=== PATIENT | female | born 1965 | race Caucasian/White ===

== ENCOUNTER 2019-02-14 23:06 | Emergency (ER) | payer SELFPAY ==
[~2019-02-14] VITALS: Ht 167.6 cm; Wt 69.0 kg
[2019-02-14] MEDS: IV NORMAL SALINE 1,000ML 1,000 ML IV ONE (23:15)
--- NOTE | 2019-02-14 23:25 | EKG ---
[address] [address] Test Date: 2019-02-14 Test Time: 23:17:10 Pat Name: DARIANA KAPADIA Department: Room: Gender: F Barrel Planer: : 1965 Requested By: RAMSES WELLINGTON Order Number: [id number] Reading MD: Measurements Intervals Hardin Rate: 92 P: 49 SC: 140 QRS: -32 QRSD: 94 T: 78 QT: 384 QTc: 480 Interpretive Statements SINUS RHYTHM ABNORMAL LEFT AXIS DEVIATION LOW LIMB LEAD VOLTAGE LEFT ANTERIOR FASCICULAR BLOCK QRS(T) CONTOUR ABNORMALITY CONSIDER ANTEROSEPTAL MYOCARDIAL DAMAGE PROLONGED QT ABNORMAL ECG RI6.01 No previous ECG available for comparison
--- NOTE | 2019-02-14 23:36 | PHYS DOC ---
Past History Past Medical History: Anxiety, Asthma, Cancer, Depression, Diabetes, GERD, High Cholesterol, Migraines, Seizure Additional Past Medical Histor: Panic attacks, dissociative identity disorder Smoking: Cigarettes Alcohol Use: Rarely Drug Use: None Adult General Chief Complaint Chief Complaint: SEIZURE HPI HPI 53-year-old female presents via EMS with report of seizure-like activity lasting 1 minute 2. Patient apparently had a similar episode 4 days ago and was seen at [facility]. Patient apparently had been admitted at that time but was told she did not have a true seizure. Patient was also being evaluated for possible obstipation. Patient subsequently elected to leave AGAINST MEDICAL ADVICE as she did not think she needed to stay in the hospital. Family states patient did lose consciousness and was shaking. Denies loss of bowel or bladder. Denies tongue pain or bleeding from mouth. EMS reports patient was confused u rio their arrival and appeared to be postictal. Review of Systems Review of Systems Constitutional: Denies fever or chills Eyes: Denies redness or eye pain HENT: Denies nasal congestion or sore throat Respiratory: Denies cough or shortness of breath Cardiovascular: Denies chest pain or palpitations GI: Denies abdominal pain, nausea, or vomiting : Denies dysuria or hematuria Musculoskeletal: Denies back pain or joint pain Integument: Denies rash or skin lesions Neurologic: Reports headache and seizure-like activity Complete systems were reviewed and found to be within normal limits, except as documented in this note. Current Medications Current Medications Current Medications Medications (Trade) Dose Ordered Sig/Krzysztof Start Time Stop Time Status Last Admin Dose Admin Sodium Chloride 1,000 ml @ 1,000 mls/hr 1X ONCE 02/14/19 23:15 02/15/19 00:14 UNV Physical Exam Physical Exam Constitutional: Well developed, well nourished, no acute distress, non-toxic appearance HENT: Normocephalic, atraumatic, oropharynx moist Eyes: EOMI, PERRL, conjunctiva normal, no discharge Neck: Normal range of motion, no midline tenderness, supple Cardiovascular: Heart rate normal, regular rhythm Lungs & Thorax: Bilateral breath sounds clear to auscultation, no wheezing Abdomen: Soft, no tenderness, no distention/rebound tenderness/ Skin: Warm, dry, no erythema, no rash Extremities: No tenderness, ROM intact, no edema Neurologic: Alert and oriented X 3, normal motor function, normal sensory function, no focal deficits noted Psychologic: Affect anxious, judgement normal EKG EKG @2317 NSR at 92bpm, NO ST elevation, QRS 94ms, QT/QTc 384/480ms Radiology/Procedures Radiology/Procedures PROCEDURE: CT HEAD AND CERVICAL SPINE WO CT HEAD AND CERVICAL SPINE WO Date: 02/14/2019 11:13 PM Clinical Indication: Altered mental status, seizure like activity, neck pain, headache Comparison: None. Technique: 5 mm axial tomographic images were obtained of the head without contrast. These were viewed on brain and bone windows. CT imaging of the cervical spine was performed without contrast. Coronal and sagittal reformatted images were performed. One or more of the following dose reduction techniques were utilized: Automated exposure control (AEC), Adjustment of mA and/or kV according to patient size, Use of iterative reconstruction technique such as ASiR, CT scan done according to ALARA and image gently/image wisely HEAD FINDINGS: The brain parenchyma is normal in attenuation. No intra- or extra-axial mass or fluid collection. No acute hemorrhage. The ventricles are normal in size, shape, and morphology. The murdock-white matter junction is normal. The basilar cisterns are patent. The visualized paranasal sinuses are normal. The visualized portions of the orbits and globes are normal. The mastoid air cells are clear. No aggressive osseous lesion or fracture. CERVICAL SPINE FINDINGS: Straightening of the cervical lordosis. No acute fracture. No aggressive lytic or blastic osseous lesion. Mild multilevel degenerative disc height loss. No high-grade spinal canal stenosis or neural foraminal narrowing. Left thyroidectomy. No cervical lymphadenopathy. The visualized aerodigestive tract is unremarkable. Centrilobular emphysema. IMPRESSION: 1. No acute intracranial process. 2. No acute osseous abnormality of the cervical spine. Electronically signed by: Kody Bruce MD (02/15/2019 12:05 AM) [facility] Course & Med Decision Making Course & Med Decision Making Pertinent Labs and Imaging studies reviewed. (See chart for details) Patient presents via EMS with report of witnessed seizure-like activity. Patient was noted by EMS to be post ictal. Patient did appear slightly confused upon arrival with interval improvement during ED stay. IV fluid hydration provided. EKG stable. Labs obtained and posted to chart. WBC, lactic acid, and CPK all within normal limits. Hypokalemia addressed. CT head/cervical spine without acute process. It is unclear what ultimately happened this evening however patient appears very stable at this time. Patient and family advised patient would need to follow closely with her PCP and/or neurologist for further evaluation. Neurology referral provided. Discussed findings and plan with patient and family, who acknowledge understanding and agreement. Dragon Disclaimer Dragon Disclaimer This electronic medical record was generated, in whole or in part, using a voice recognition dictation system. Departure Departure: Impression: Primary Impression: Witnessed seizure-like activity Additional Impressions: Hypokalemia Hx of constipation Disposition: HOME, SELF-CARE Condition: STABLE Referrals: PCP,LONNIE (PCP) JOSEY HALL MD Patient Instructions: Constipation, Adult, Lhvz-[id number]-Dkhn, Hypokalemia-Brief, Potassium Content of Foods, Seizure, Adult, Ogdr-ce-Vupy, Syncope, [id number]-rb-[id number] Additional Instructions: It is unclear what ultimately happened this evening. It is important for you to follow closely with your family physician and/or a specialist (ie Neurologist). A referral has been given for you to call and make an appointment for further evaluation and treatment. Your labs, EKG, CT imaging, and monitoring have come back inconclusive and therefore more specialize outpatient testing is warranted. Scripts Polyethylene Glycol 3350 (MIRALAX) 17 Gm Powd.pack 1 PACKET PO DAILY PRN for CONSTIPATION, #20 PACKET 0 Refills dissolve in water Prov: RAMSES WELLINGTON DO 02/15/19 Sennosides/Docusate Sodium (Colace 2-in-1 Tablet) 1 Each Tablet 1 TAB PO QHS for Constipation for 30 Days, #30 TAB 0 Refills Prov: RAMSES WELLINGTON DO 02/15/19 Problem Qualifiers RAMSES WELLINGTON DO Feb 14, 2019 23:36
[2019-02-14 23:47] LABS: BASO # 0.1 x10^3/uL (0.0-0.2); BASO % 1 % (0-3); EOS # 0.1 x10^3/uL (0.0-0.7); EOS % 1 % (0-3); HEMATOCRIT 44.6 % (36.0-47.0); HEMOGLOBIN 15.3 g/dL (12.0-15.5); LYMPH # 2.9 x10^3/uL (1.0-4.8); LYMPH % 27 % (24-48); MEAN CORPUSCULAR HEMOGLOBIN 30 pg (25-35); MEAN CORPUSCULAR HGB CONC 34 g/dL (31-37); MEAN CORPUSCULAR VOLUME 87 fL (79-100); MONO # 0.5 x10^3/uL (0.0-1.1); MONO % 5 % (0-9); NEUT % 66 % (31-73); PLATELET COUNT 190 x10^3/uL (140-400); RED BLOOD COUNT 5.12 x10^6/uL (3.50-5.40); WHITE BLOOD COUNT 10.6 x10^3/uL (4.0-11.0)
[2019-02-14 23:53] LABS: BACTERIA,URINE 0 /HPF (0-FEW); BILIRUBIN,URINE NEG (NEG); CLARITY,URINE CLEAR; COLOR,URINE YELLOW; GLUCOSE,URINE 500 mg/dL (NEG); NITRITE,URINE NEG (NEG); RBC,URINE 0 /HPF (0-2); SQUAMOUS EPITHELIAL CELL,UR FEW /LPF; UROBILINOGEN,URINE 0.2 mg/dL (0.2 mg/dL); WBC,URINE OCC /HPF (0-4)
[2019-02-14 23:57] LABS: CALCIUM 8.7 mg/dL (8.5-10.1); CREATININE 0.7 mg/dL (0.6-1.0); GFR 87.5; POTASSIUM 3.3 mmol/L (3.5-5.1)
[2019-02-14 23:58] LABS: BARBITURATES NEG (NEG); BENZODIAZEPINES NEG (NEG); CANNABINOIDS NEG (NEG); COCAINE NEG (NEG); METHADONE NEG (NEG); OPIATES NEG (NEG); PHENCYCLIDINE NEG (NEG)
[2019-02-15] LABS: AMPHETAMINE/METHAMPHETAMINE NEG (NEG)
--- NOTE | 2019-02-15 00:08 | RAD ---
CT HEAD AND CERVICAL SPINE WO Date: 02/14/2019 11:13 PM Clinical Indication: Altered mental status, seizure like activity, neck pain, headache Comparison: None. Technique: 5 mm axial tomographic images were obtained of the head without contrast. These were viewed on brain and bone windows. CT imaging of the cervical spine was performed without contrast. Coronal and sagittal reformatted images were performed. One or more of the following dose reduction techniques were utilized: Automated exposure control (AEC), Adjustment of mA and/or kV according to patient size, Use of iterative reconstruction technique such as ASiR, CT scan done according to ALARA and image gently/image wisely HEAD FINDINGS: The brain parenchyma is normal in attenuation. No intra- or extra-axial mass or fluid collection. No acute hemorrhage. The ventricles are normal in size, shape, and morphology. The murdock-white matter junction is normal. The basilar cisterns are patent. The visualized paranasal sinuses are normal. The visualized portions of the orbits and globes are normal. The mastoid air cells are clear. No aggressive osseous lesion or fracture. CERVICAL SPINE FINDINGS: Straightening of the cervical lordosis. No acute fracture. No aggressive lytic or blastic osseous lesion. Mild multilevel degenerative disc height loss. No high-grade spinal canal stenosis or neural foraminal narrowing. Left thyroidectomy. No cervical lymphadenopathy. The visualized aerodigestive tract is unremarkable. Centrilobular emphysema. IMPRESSION: 1. No acute intracranial process. 2. No acute osseous abnormality of the cervical spine. Electronically signed by: Kody Bruce MD (02/15/2019 12:05 AM) [facility]
[2019-02-15 00:10] LABS: ALBUMIN 3.3 g/dL (3.4-5.0); MAGNESIUM 1.8 mg/dL (1.8-2.4); TOTAL BILIRUBIN 0.4 mg/dL (0.2-1.0); TOTAL PROTEIN 6.7 g/dL (6.4-8.2)
[2019-02-15 00:36] VITALS: BP 132/58
[2019-02-15] MEDS: POTASSIUM CHLORIDE 20 MEQ TABLET.ER. PO ONE (00:41)
[2019-02-15] MEDS ORDERED: SENN-121 PO (00:43)
[2019-02-15] MEDS ORDERED: POLY17PO5 PO (00:43)
== END 2019-02-15 00:44 | disposition home or self-care (01) ==
LOC: ER 23:06
DX: R56.9 Unspecified convulsions (principal); E87.6 Hypokalemia; F41.9 Anxiety disorder, unspecified; J45.909 Unspecified asthma, uncomplicated; F32.9 Major depressive disorder, single episode, unspecified; E11.9 Type 2 diabetes mellitus without complications; K21.9 Gastro-esophageal reflux disease without esophagitis; E78.00 Pure hypercholesterolemia, unspecified; G43.909 Migraine, unspecified, not intractable, without status migrainosus; F17.210 Nicotine dependence, cigarettes, uncomplicated
CPT/HCPCS: 36415; 70450; 72125; 80053; 80307; 81001; 82140; 82550; 83605; 83735; 84484; 85025; 93005; 99285; G0480

== ENCOUNTER 2019-05-02 18:38 | Emergency (ER) | payer SELFPAY ==
[~2019-05-02] VITALS: Ht 167.6 cm; Wt 69.0 kg
[~2019-05-02 18:38] MED LIST: POLY17PO5 PO; SENN-121 PO
--- NOTE | 2019-05-02 18:41 | PHYS DOC ---
Past History Past Medical History: Anxiety, Asthma, Cancer, Depression, Diabetes, GERD, High Cholesterol, Migraines, Seizure, UTI Additional Past Medical Histor: Panic attacks, dissociative identity disorder Past Surgical History: Cancer Surgery, Hysterectomy Smoking: Cigarettes Alcohol Use: Rarely Drug Use: None Adult General Chief Complaint Chief Complaint: VAGINAL PROBLEM... " Got this horrible gross smell coming from my vagina... I started a new sexual relationship in November... It has been unprotected..."..." That discharge stinks really bad..." HPI HPI Patient is a 53 year old female who presents with above hx and complaints motor is vaginal discharge . Recent new sexual partner. Patient denies previous history of STDs. Patient does have a history of anxiety , dis -associative diso rder, asthma, diabetes, GERD, arthritis, and urinary tract infections. Patient denies that she's had approximately 7 lifetime sex partners. Patient states the discharge markedly increased this week .s Pt. follows with Dr. Jefferson. Review of Systems Review of Systems Constitutional: Denies fever or chills [] Eyes: Denies change in visual acuity, redness, or eye pain [] HENT: Denies nasal congestion or sore throat [] Respiratory: Denies cough or shortness of breath [] Cardiovascular: No additional information not addressed in HPI [] GI: Denies abdominal pain, nausea, vomiting, bloody stools or diarrhea [] : Complaints of a vaginal discharge Musculoskeletal: Denies back pain or joint pain [] Integument: Denies rash or skin lesions [] Neurologic: Denies headache, focal weakness or sensory changes [] Endocrine: Denies polyuria or polydipsia [] All other systems were reviewed and found to be within normal limits, except as documented in this note. Family History Family History Noncontributory presentation Current Medications Current Medications See nursing for home meds Allergies Allergies Allergies Coded Allergies Type Severity Reaction Last Updated Verified Cephalosporins Allergy Intermediate 02/15/19 Yes metformin Allergy Intermediate 02/15/19 Yes Physical Exam Physical Exam Constitutional: , no acute distress, non-toxic appearance. [] HENT: Normocephalic, atraumatic, bilateral external ears normal, oropharynx moist, no oral exudates, nose normal. [] Eyes: PERRLA, EOMI, conjunctiva normal, no discharge. [] Neck: Normal range of motion, no tenderness, supple, no stridor. [] Cardiovascular:Heart rate regular rhythm, no murmur [] Lungs & Thorax: Bilateral breath sounds clear to auscultation [] Abdomen: Bowel sounds normal, soft, mild pelvic tenderness, no masses, no pulsatile masses. [] Watery foul odor discharge. Some scarring or a vaginal cuff erythema. No true rebound tenderness Skin: Warm, dry, no erythema, no rash. [] Back: No tenderness, no CVA tenderness. [] Extremities: No tenderness, no cyanosis, no clubbing, ROM intact, no edema. [] No psoas sign. Neurologic: Alert and oriented X 3, normal motor function, normal sensory function, no focal deficits noted. [] Psychologic: Affect anxious ,judgement normal, mood normal. [] EKG EKG [] Radiology/Procedures Radiology/Procedures [] Course & Med Decision Making Course & Med Decision Making Pertinent Labs and Imaging studies reviewed. (See chart for details) Follow-up pending cultures. Consider pap exam, . Tylenol and ibuprofen for pain. Use MetroGel nightly for 7 days. Return if any concerns. Follow-up with Dr. Jefferson Impression: 1. Bacterial vaginosis [] Dragon Disclaimer Dragon Disclaimer This electronic medical record was generated, in whole or in part, using a voice recognition dictation system. Departure Departure: Disposition: 01 HOME/RESIDENCE PRIOR TO ADM Condition: STABLE Referrals: RYAN JEFFERSON DO (PCP) Scripts Metronidazole (METROGEL-VAGINAL) 70 Gm Gel.w.appl 1 APPFUL VG QHS for vaginosis for 7 Days, #1 EACH 0 Refills Prov: AVIVA FUENTES MD 05/02/19 Prabhu Disclaimer This chart was dictated in whole or in part using Voice Recognition software in a busy, high-work load, and often noisy Emergency Department environment. It may contain unintended and wholly unrecognized errors or omissions. Dragon Disclaimer This chart was dictated in whole or in part using Voice Recognition software in a busy, high-work load, and often noisy Emergency Department environment. It may contain unintended and wholly unrecognized errors or omissions. AVIVA FUENTES MD May 02, 2019 18:41
[2019-05-02] MEDS ORDERED: IV RINGERS SOLUTION,LACTATED 1,000 ML IV SCH (19:02)
[2019-05-02] MEDS ORDERED: ONDANSETRON PF 4 MG/2 ML VIAL. IVP ONE (19:15)
[2019-05-02 20:08] LABS: BASO % 1 % (0-3); EOS # 0.1 x10^3/uL (0.0-0.7); EOS % 1 % (0-3); HEMATOCRIT 43.8 % (36.0-47.0); HEMOGLOBIN 15.2 g/dL (12.0-15.5); LYMPH # 3.2 x10^3/uL (1.0-4.8); LYMPH % 36 % (24-48); MEAN CORPUSCULAR HEMOGLOBIN 30 pg (25-35); MEAN CORPUSCULAR HGB CONC 35 g/dL (31-37); MEAN CORPUSCULAR VOLUME 87 fL (79-100); MONO # 0.4 x10^3/uL (0.0-1.1); MONO % 5 % (0-9); NEUT % 57 % (31-73); PLATELET COUNT 201 x10^3/uL (140-400); RED BLOOD COUNT 5.05 x10^6/uL (3.50-5.40); RED CELL DISTRIBUTION WIDTH 13.5 % (11.5-14.5); WHITE BLOOD COUNT 8.8 x10^3/uL (4.0-11.0)
[2019-05-02 20:11] LABS: CALCIUM 8.6 mg/dL (8.5-10.1); CREATININE 0.7 mg/dL (0.6-1.0); GFR 87.5; POTASSIUM 3.6 mmol/L (3.5-5.1)
[2019-05-02 20:11] LABS: BARBITURATES NEG (NEG); BENZODIAZEPINES NEG (NEG); CANNABINOIDS NEG (NEG); COCAINE NEG (NEG); METHADONE NEG (NEG); OPIATES NEG (NEG); PHENCYCLIDINE NEG (NEG)
[2019-05-02 20:12] LABS: AMPHETAMINE/METHAMPHETAMINE NEG (NEG)
[2019-05-02 20:17] LABS: ALBUMIN 3.4 g/dL (3.4-5.0); DIRECT BILIRUBIN 0.1 mg/dL (0.0-0.2); TOTAL BILIRUBIN 0.4 mg/dL (0.2-1.0); TOTAL PROTEIN 6.4 g/dL (6.4-8.2)
[2019-05-02 20:30] LABS: BILIRUBIN,URINE NEG (NEG); CLARITY,URINE CLEAR; COLOR,URINE YELLOW; GLUCOSE,URINE >=1000 mg/dL (NEG); NITRITE,URINE NEG (NEG); UROBILINOGEN,URINE 0.2 mg/dL (0.2 mg/dL)
[2019-05-02 20:31] LABS: BACTERIA,URINE 0 /HPF (0-FEW); RBC,URINE OCC /HPF (0-2); SQUAMOUS EPITHELIAL CELL,UR MOD /LPF; WBC,URINE OCC /HPF (0-4)
[2019-05-02] MEDS ORDERED: AZITHROMYCIN 250 MG TABLET. PO ONE (22:00)
[2019-05-02] MEDS ORDERED: METR70GE14 VG (22:14)
[2019-05-03 23:31] VITALS: BP 98/55
[2019-05-05 02:06] LABS: CHLAMYDIA PROBE Negative (Negative)
== END 2019-05-02 23:37 | disposition home or self-care (01) ==
LOC: ER 18:38
DX: N76.0 Acute vaginitis (principal); B96.89 Other specified bacterial agents as the cause of diseases classified elsewhere; F41.9 Anxiety disorder, unspecified; J45.909 Unspecified asthma, uncomplicated; E11.9 Type 2 diabetes mellitus without complications; K21.9 Gastro-esophageal reflux disease without esophagitis; E78.00 Pure hypercholesterolemia, unspecified; G43.909 Migraine, unspecified, not intractable, without status migrainosus; Z87.440 Personal history of urinary (tract) infections; F17.210 Nicotine dependence, cigarettes, uncomplicated; Z88.1 Allergy status to other antibiotic agents; Z88.8 Allergy status to other drugs, medicaments and biological substances
CPT/HCPCS: 80048; 80076; 80307; 81001; 85025; 86592; 86705; 86709; 86803; 87340; 87491; 87591; 96365; 96375; 99283; J0456; J2405; J3490; J7120; Q0111